=== PATIENT | male | born 1995 | race African-American/Black ===

== ENCOUNTER 2018-08-27 05:31 | Emergency (ER) | payer OTHER ==
[~2018-08-27] VITALS: Ht 190.5 cm; Wt 73.5 kg
[2018-08-27 05:37] VITALS: BP 141/88
--- NOTE | 2018-08-27 05:41 | NUR ---
PT TAKEN TO BED 1
--- NOTE | 2018-08-27 05:49 | NUR ---
MIKE NOTIFIED OF INCIDENT, , NO ADDITIONAL FOLLOW UP NECESSARY.
--- NOTE | 2018-08-27 07:10 | NUR ---
RECEIVED REPORT FROM AGENCY 02 ED. Patient appears to be resting comfortably in bed. Vital Signs within normal limits. Respirations even and unlabored.
--- NOTE | 2018-08-27 07:33 | NUR ---
Patient being evaluated by DR ANGEL at bedside.
[2018-08-27] MEDS ORDERED: KETOROLAC 60 MG/2 ML VIAL IM ONE (07:45)
[2018-08-27] MEDS ORDERED: NEOMYCIN/POLYMYXIN/BACITRACIN 0.9 GM/1 PKT TP ONE (07:45)
[2018-08-27] MEDS ORDERED: NEOMYCIN/POLYMYXIN/HC OT SOL. 10 ML BTL ONE (07:59)
--- NOTE | 2018-08-27 08:03 | NUR ---
PT STATED GOT TDAP APR 2018
[2018-08-27] MEDS ORDERED: BACITRACIN OINT 500 UNITS/GM PKT TP ONE (08:05)
--- NOTE | 2018-08-27 09:11 | NUR ---
Patient being reevaluated by DR ANGEL at bedside.
[2018-08-27 09:33] VITALS: BP 131/71
--- NOTE | 2018-08-27 09:33 | NUR ---
Patient discharged with v/s stable. Written and verbal after care instructions given and explained. Patient alert, oriented and verbalized understanding of instructions. Ambulatory with steady gait. All questions addressed prior to discharge. ID band removed. Patient advised to follow up with PMD. Rx of Baclofen and Voltaren XR given. Patient educated on indication of medication including possible reaction and side effects. Opportunity to ask questions provided and answered.
== END 2018-08-27 09:33 | disposition home or self-care (01) ==
LOC: MED 05:31
DX: S03.43XA Sprain of jaw, bilateral, initial encounter (principal); Y04.2XXA Assault by strike against or bumped into by another person, initial encounter; Y93.89 Activity, other specified; Y92.89 Other specified places as the place of occurrence of the external cause; Y99.8 Other external cause status
CPT/HCPCS: 70450; 70486; 96372; 99284; J1885; 90715